=== PATIENT | male | born 1970 | race American Indian/Alaskan Native ===

== ENCOUNTER 2018-08-31 15:02 | Emergency (ER) | payer MEDICAID ==
[2018-08-31] MEDS ORDERED: MORPHINE IV ONE (16:09)
[2018-08-31] MEDS ORDERED: ZOFRAN IV ONE (16:09)
[2018-08-31] MEDS ORDERED: NACL 0.9% 1000 ML 1,000 ML IV ONE ×2 (16:09→18:06)
[2018-08-31 16:34] LABS: Hemoglobin 8.8 gm/dl (11.8-15.2); Mean Corpuscular HGB Conc 35 % (32-34); Mean Corpuscular Volume 92 fl (84-94); Platelet Count 159 K/mm3 (140-440); Red Blood Count 2.71 M/mm3 (3.65-5.03)
--- NOTE | 2018-08-31 16:46 | XRay Report ---
CHEST PA AND LATERAL VIEWS INDICATION: chest pain. COMPARISON: None. FINDINGS: Support devices: None. Heart: Within normal limits. Lungs/Pleura: Patchy reticular markings in the lower lungs may be chronic. Lungs are otherwise clear. No pleural effusion or pneumothorax. IMPRESSION: 1. Patchy reticular markings in the lower lungs are nonspecific and may be chronic. No other signific ant pulmonary or pleural findings. Signer Name: John Moore MD Signed: 08/31/2018 4:42 PM Workstation Name: [id number]
[2018-08-31 17:00] LABS: BUN/Creatinine Ratio 11; Blood Urea Nitrogen 8 mg/dL (9-20); Calcium 9.4 mg/dL (8.4-10.2); Hemolysis Index 35; Red Cell Distribution Width 21.2 % (13.2-15.2)
[2018-08-31 17:47] LABS: Basophils % (Manual) 0 % (0.0-1.8); Total Cells Counted 100
[2018-08-31 17:49] LABS: Anisocytosis 1+; Platelet Estimate Consistent w Auto; Sickle Cells 1+; Target Cells 1+
[2018-08-31] MEDS ORDERED: BENADRYL IV ONE (18:38)
[2018-08-31] MEDS ORDERED: DILAUDID IV ONE ×2 (18:38→19:55)
[2018-08-31 19:38] VITALS: BP 145/80
--- NOTE | 2018-08-31 20:04 | Emergency Department Report ---
ED General Adult HPI - General Chief complaint: Chest Pain Stated complaint: SICKLE CELL CRISIS/CHEST PAIN Time Seen by Provider: 08/31/18 16:01 Source: patient Mode of arrival: Ambulatory Limitations: No Limitations - History of Present Illness Initial comments: Patient is a 48-year-old -Citizen Of [place] male with past medical history of sickle cell as well as coronary disease who has several stents in place who states that he is having some chest discomfort. Patient states his chest soreness he states that this is different from his cardiac chest pain. Patient states when he has cardiac chest pain is radiation to the jaw and his shoulders with smothering shortness of breath. Patient states shortness of breath is just slight today and this is more of aching pain consistent with his sickle cell. Denies any cough cold congestion fevers chills nausea vomiting at this time. Patient also did have a cholecystectomy 2 weeks ago and was having no palpitations. Patient denies any fever or right upper quadrant pain at this time. Patient is traveling here from [place] and does not have his Percocet 10 Severity scale (0 -10): 7 - Related Data Previous Rx's Medication Instructions Recorded Last Taken Type Oxycodone HCl/Acetaminophen 1 each PO Q6HR PRN #10 tablet 08/31/18 Unknown Rx [Percocet 10/325 mg] Allergies Allergy/AdvReac Type Severity Reaction Status Date / Time ketorolac [From Toradol] Allergy Unknown Verified 08/31/18 15:14 ED Review of Systems ROS: Stated complaint: SICKLE CELL CRISIS/CHEST PAIN Other details as noted in HPI Comment: All other systems reviewed and negative ED Past Medical Hx - Past Medical History Previous Medical History?: Yes Hx Hypertension: Yes Hx Heart Attack/AMI: Yes - Social History Smoking Status: Never Smoker Substance Use Type: None - Medications Home Medications: Home Medications Medication Instructions Recorded Confirmed Last Taken Type Oxycodone HCl/Acetaminophen 1 each PO Q6HR PRN #10 tablet 08/31/18 Unknown Rx [Percocet 10/325 mg] ED Physical Exam - General Limitations: No Limitations General appearance: alert, in no apparent distress - Head Head exam: Present: atraumatic, normocephalic - Eye Eye exam: Present: normal appearance - ENT ENT exam: Present: mucous membranes moist - Neck Neck exam: Present: normal inspection - Respiratory Respiratory exam: Present: normal lung sounds bilaterally. Absent: respiratory distress, wheezes, rales, rhonchi - Cardiovascular Cardiovascular Exam: Present: regular rate, normal rhythm. Absent: systolic murmur, diastolic murmur, rubs, gallop - GI/Abdominal GI/Abdominal exam: Present: soft, normal bowel sounds. Absent: distended, tenderness, guarding, rebound - Rectal Rectal exam: Present: deferred - Extremities Exam Extremities exam: Present: normal inspection - Back Exam Back exam: Present: normal inspection - Neurological Exam Neurological exam: Present: alert, oriented X3 - Psychiatric Psychiatric exam: Present: normal affect, normal mood - Skin Skin exam: Present: warm, dry, intact, normal color. Absent: rash ED Course Vital Signs 08/31/18 08/31/18 08/31/18 15:12 15:22 15:30 Temperature 98.2 F Pulse Rate 79 78 Respiratory 18 18 19 Rate Blood Pressure 115/64 111/69 Blood Pressure [Left] O2 Sat by Pulse 94 96 Oximetry 08/31/18 08/31/18 08/31/18 15:45 16:00 16:16 Temperature Pulse Rate 72 70 71 Respiratory 15 19 14 Rate Blood Pressure 113/71 104/60 106/62 Blood Pressure [Left] O2 Sat by Pulse 99 99 98 Oximetry 08/31/18 08/31/18 08/31/18 16:30 17:00 18:42 Temperature 98.5 F Pulse Rate 79 72 Respiratory 19 19 17 Rate Blood Pressure 127/78 Blood Pressure 135/87 [Left] O2 Sat by Pulse 100 100 99 Oximetry 08/31/18 08/31/18 08/31/18 18:46 19:00 19:20 Temperature 98.3 F Pulse Rate 66 71 85 Respiratory 11 L 8 L 13 Rate Blood Pressure 137/76 145/80 Blood Pressure 145/80 [Left] O2 Sat by Pulse 100 100 99 Oximetry ED Medical Decision Making - Lab Data Result diagrams: 08/31/18 16:16 08/31/18 16:16 Lab Results 08/31/18 08/31/18 Range/Units 16:16 16:16 WBC 7.9 (4.5-11.0) K/mm3 RBC 2.71 L (3.65-5.03) M/mm3 Hgb 8.8 L (11.8-15.2) gm/dl Hct 25.0 L (35.5-45.6) % MCV 92 (84-94) fl MCH 33 H (28-32) pg MCHC 35 H (32-34) % RDW 21.2 H (13.2-15.2) % Plt Count 159 (140-440) K/mm3 Baso % (Auto) Protein Chemist Add Manual Diff Complete Total Counted 100 Seg Neuts % (Manual) 67.0 (40.0-70.0) % Band Neutrophils % 0 % Lymphocytes % (Manual) 19.0 (13.4-35.0) % Reactive Lymphs % (Man) 0 % Monocytes % (Manual) 12.0 H (0.0-7.3) % Eosinophils % (Manual) 2.0 (0.0-4.3) % Basophils % (Manual) 0 (0.0-1.8) % Metamyelocytes % 0 % Myelocytes % 0 % Promyelocytes % 0 % Blast Cells % 0 % Nucleated RBC % Not Reportable Seg Neutrophils # Man 5.3 (1.8-7.7) K/mm3 Band Neutrophils # 0.0 K/mm3 Lymphocytes # (Manual) 1.5 (1.2-5.4) K/mm3 Abs React Lymphs (Man) 0.0 K/mm3 Monocytes # (Manual) 0.9 H (0.0-0.8) K/mm3 Eosinophils # (Manual) 0.2 (0.0-0.4) K/mm3 Basophils # (Manual) 0.0 (0.0-0.1) K/mm3 Metamyelocytes # 0.0 K/mm3 Myelocytes # 0.0 K/mm3 Promyelocytes # 0.0 K/mm3 Blast Cells # 0.0 K/mm3 WBC Morphology Not Reportable Hypersegmented Neuts Not Reportable Hyposegmented Neuts Not Reportable Hypogranular Neuts Not Reportable Smudge Cells Not Reportable Toxic Granulation Not Reportable Toxic Vacuolation Not Reportable Dohle Bodies Not Reportable Pelger-Huet Anomaly Not Reportable Tasha Rods Not Reportable Platelet Estimate Consistent w auto Clumped Platelets Not Reportable Plt Clumps, EDTA Not Reportable Large Platelets Not Reportable Giant Platelets Not Reportable Platelet Satelliting Not Reportable Plt Morphology Comment Not Reportable RBC Morphology Not Reportable Dimorphic RBCs Not Reportable Polychromasia Not Reportable Hypochromasia Not Reportable Poikilocytosis Not Reportable Anisocytosis 1+ Microcytosis Not Reportable Macrocytosis Not Reportable Spherocytes Not Reportable Pappenheimer Bodies Not Reportable Sickle Cells 1+ Target Cells 1+ Tear Drop Cells Not Reportable Ovalocytes Not Reportable Helmet Cells Not Reportable [place] Bodies Not Reportable [place] Rings Not Reportable David Cells Not Reportable Bite Cells Not Reportable Crenated Cell Not Reportable Elliptocytes Not Reportable Acanthocytes (Spur) Not Reportable Rouleaux Not Reportable Hemoglobin C Crystals Not Reportable Schistocytes Not Reportable Malaria parasites Not Reportable Kei Bodies Not Reportable Hem Pathologist Commnt No Sodium 137 (137-145) mmol/L Potassium 4.8 (3.6-5.0) mmol/L Chloride 104.1 (98-107) mmol/L Carbon Dioxide 20 L (22-30) mmol/L Anion Gap 18 mmol/L BUN 8 L (9-20) mg/dL Creatinine 0.7 L (0.8-1.5) mg/dL Estimated GFR > 60 ml/min BUN/Creatinine Ratio 11 % Glucose 94 (75-100) mg/dL Calcium 9.4 (8.4-10.2) mg/dL Troponin T < 0.010 (0.00-0.029) ng/mL - EKG Data -: EKG Interpreted by Ak - EKG Data 08/31/18 20:01 EKG shows a sinus rhythm rate of 72 the axis normal intervals show a prolonged VA interval. There is evidence of LVH. There is no ST segment elevations or depressions. Time of interpretation 1510 - Radiology Data Radiology results: report reviewed (CXR wnl) - Medical Decision Making Patient is a 48-year-old Male past medical history sickle cell presented with some chest discomfort. Patient states he has had sickle cell pain presents with chest pain 4. Patient's troponin and EKG are not consistent with STEMI. Patient will be discharged home. Patient's pain was controlled with several doses of IV pain meds as well as IV fluids. Critical care attestation.: If time is entered above; I have spent that time in minutes in the direct care of this critically ill patient, excluding procedure time. ED Disposition Clinical Impression: Atypical chest pain, Sickle cell pain crisis Disposition: DC- TO HOME OR SELFCARE Is pt being admited?: No Does the pt Need Aspirin: No Condition: Stable Instructions: Chest Pain (ED), Sickle Cell Crisis (ED) Referrals: YAKELIN BARTLETT [Other] - 3-5 Days Time of Disposition: 20:03
== END 2018-08-31 20:20 | disposition home or self-care (01) ==
LOC: ED 15:02
DX: R07.89 Other chest pain (principal); D57.00 Hb-SS disease with crisis, unspecified; I10 Essential (primary) hypertension; I25.2 Old myocardial infarction; Z79.899 Other long term (current) drug therapy; Z88.6 Allergy status to analgesic agent
CPT/HCPCS: 36415; 71046; 80048; 84484; 85007; 85025; 93005; 93010; 96374; 96375; 96376; 99284; J1170; J1200; J2270; J2405; J7030; 96361